=== PATIENT | female | born 1990 | race Caucasian/White ===

== ENCOUNTER 2018-03-11 10:39 | Emergency (ER) | payer MEDICAID ==
[~2018-03-11] VITALS: Ht 175.3 cm; Wt 86.2 kg
[2018-03-11 10:45] VITALS: Ht 175.3 cm; Wt 86.2 kg
[2018-03-11 12:26] VITALS: BP 131/78
== END 2018-03-11 12:26 | disposition home or self-care (01) ==
LOC: ED 10:39
DX: M54.5 Low back pain (principal); W10.9XXA Fall (on) (from) unspecified stairs and steps, initial encounter; Y93.89 Activity, other specified; Y92.89 Other specified places as the place of occurrence of the external cause; Y99.8 Other external cause status
CPT/HCPCS: J1885